=== PATIENT | female | born 1970 | race Caucasian/White ===

== ENCOUNTER → 2024-08-31 | Outpatient (CLI) | payer BC, SELFPAY ==
--- NOTE | 2024-08-31 14:05 | BI_ITS ---
MAMMOGRAPHY - BILATERAL SCREENING REASON FOR EXAM: Female, 54 years old. Routine annual screening examination. PERTINENT HISTORY: Non-contributory. Questionable left axillary nodule. TECHNIQUE: Digital bilateral breast river (3D mammographic acquisition) in the CC and MLO projections. 2-D mediolateral oblique (MLO) and craniocaudad (CC) views of both breasts were obtained. CAD: Full Field Digital Mammography with Computer Added Detection was performed. COMPARISON: No comparison mammograms available at this time. If any prior films become available, an addendum to this report can be generated. FINDINGS: Breast Composition: The breasts are heterogeneously dense, which may obscure small masses. There are no dominant masses or suspicious calcifications. No other significant abnormalities are identified. BI/SCRN MAMM (CAD)W/RIVER BILAT IMPRESSION: Negative screening mammogram. With the patient''s history of a palpable lump in the left axillary region, correlation with ultrasound recommended. ASSESSMENT CATEGORY: BIRADS Category 0: Incomplete. Need additional imaging evaluation. A letter regarding these results will be sent to the patient by the facility within 30 days. Approximately 10% of breast cancers are not detected by mammography. A normal mammogram should not delay biopsy of a clinically suspicious abnormality. [id number] Electronically Signed: Jayesh Zaragoza MD at 15:07 EST ,
--- NOTE | 2024-08-31 14:41 | US_ITS ---
STUDY: ULTRASOUND BREAST - LEFT REASON FOR EXAM: Female, 54 years old. Palpable lump in the upper outer aspect of the left breast. TECHNIQUE: Axial and longitudinal images of the LEFT breast were performed with a high resolution ultrasound transducer. # OF IMAGES: 29 COMPARISON: Comparison is made with prior study dated August 31, 2024. FINDINGS: LEFT Breast: The upper lateral aspect of the left breast was examined with ultrasound. No sonographic abnormality is seen. US/Breast Limited Unilateral IMPRESSION: No sonographic abnormality is seen. ASSESSMENT CATEGORY: BIRADS Category 1: Negative. A letter regarding these results will be sent to the patient by the facility within 30 days. Electronically Signed: Jayesh Zaragoza MD at 15:27 EST ,
== END | disposition home or self-care (01) ==
LOC: OPBI 14:04
PROVIDERS: PCP Radiologic Technologist Bone Densitometry; Referring Provider Advanced Practice Midwife; Visit Provider Advanced Practice Midwife
DX: Z12.31 Encounter for screening mammogram for malignant neoplasm of breast (principal); N64.59 Other signs and symptoms in breast
CPT/HCPCS: 76642; 77063; 77067